=== PATIENT | female | born 2000 | race Caucasian/White ===

== ENCOUNTER 2023-03-23 12:45 | Emergency (ER) | payer BC, SELFPAY ==
[2023-03-23 13:13] VITALS: BP 113/85; PULSE 75; RESP 18; TEMP 36.7; O2SAT 100
--- NOTE | 2023-03-23 13:47 | ED.LOWEXIN ---
HPI - Extremity Injury (Lower) General Chief Complaint: Extremity Injury, Lower Stated Complaint: Lower extemity injury Time Seen by Provider: 03/23/23 13:43 Source: patient Mode of arrival: ambulatory Limitations: no limitations History of Present Illness HPI Narrative: [age] presented for complaint of bruising to the left great toenail after injury 3 days ago. She states she dropped a couch onto the toe. Endorses the pain was more severe the first 2 days. Reports the nail is intact, with bruising under the nail and some redness surrounding the nail. And reports mild swelling to the tip of the toe. Related Data Home Medications Medication Instructions Recorded Confirmed dextroamphetamine-amphetamine 5 mg 5 mg DIRECTED 03/23/23 03/23/23 tablet dextroamphetamine-amphetamine ER 20 mg PO DIRECTED 03/23/23 03/23/23 20 mg 24hr capsule,extend release lamotrigine 150 mg tablet 150 mg DIRECTED 03/23/23 03/23/23 sertraline 50 mg tablet 50 mg DIRECTED 03/23/23 03/23/23 Allergies Allergy/AdvReac Type Severity Reaction Status Date / Time No Known Allergies Allergy Verified 03/23/23 13:41 Review of Systems Review of Systems: CONSTITUTIONAL: Denies body aches, fever, chills EYES: Denies visual changes ENT: Denies rhinorrhea, congestion CARDIOVASCULAR: Denies chest pain, palpitations, or edema. RESPIRATORY: Denies cough or dyspnea. GASTROINTESTINAL: Denies abdominal pain, nausea, vomiting, or diarrhea. SKIN: Denies rash, itching, or wounds. MUSCULOSKELETAL: Reports left great toe pain denies back pain, joint pain, or myalgia. NEUROLOGIC: Denies headache, numbness, tingling, or weakness. All systems reviewed & are unremarkable except as noted in HPI and below PMFSH Past Medical History Medical History (Updated 03/23/23 @ 13:59 by Jenna Arguelles APRN) No pertinent past medical history Comments At time of signature, I have reviewed and agree with nursing past medical, surgical, social and family history unless otherwise noted. Please see nursing chart for further information. There is no relevant family history pertinent to the presenting complaint Exam Narrative: GENERAL: Well-appearing, and in no acute distress. HEAD: Normocephalic, atraumatic. CHEST: Speaks in full sentences. No respiratory distress. HEART: Regular rate and rhythm. Normal and equal peripheral pulses. EXTREMITIES: Left great toe with subungual hematoma. Nailbed is intact and adhered. Minimal erythema and swelling surrounding the nail. Minimal tenderness with palpation to the nail or distal phalanx. Foot has normal strength and sensation, normal range of motion. No open wounds, or obvious deformity; alignment normal, pulse palpable and equal bilaterally, skin warm, dry, pink. Capillary refill less than 3 seconds. SKIN: Warm, dry, no rash. NEURO: Alert and oriented x3. PSYCH: Normal mood and affect Course Course Emergency Course: Patient is aware of diagnosis, understands and agrees to treatment plan. Anticipatory guidance given. Patient agrees to follow-up as directed and is aware of reasons to seek care at the emergency department. Portions of this record may have been created with voice recognition software Level of Care: Express Care Visit Vital Signs Vital signs: Vital Signs Temperature 98.0 F 03/23/23 13:13 Pulse Rate 75 03/23/23 13:13 Respiratory Rate 18 03/23/23 13:13 Blood Pressure 113/85 03/23/23 13:13 Pulse Oximetry 100 03/23/23 13:13 Oxygen Delivery Room Air 03/23/23 13:13 Temperature 98.0 F 03/23/23 13:13 Pulse Rate 75 03/23/23 13:13 Respiratory Rate 18 03/23/23 13:13 Blood Pressure 113/85 03/23/23 13:13 Pulse Oximetry 100 03/23/23 13:13 Oxygen Delivery Room Air 03/23/23 13:13 Reviewed MDM - Extremity Injury (Lower) MDM Narrative Medical decision making narrative: Patient declined x-ray. Discussed physical exam findings; pain is much
== END 2023-03-23 14:06 | disposition home or self-care (01) ==
PROVIDERS: Emergency Provider Nurse Practitioner Family
DX: S90.212A Contusion of left great toe with damage to nail, initial encounter (principal); Z79.899 Other long term (current) drug therapy; W20.8XXA Other cause of strike by thrown, projected or falling object, initial encounter
CPT/HCPCS: 99202; G0463

== ENCOUNTER 2023-12-25 10:45 | Outpatient (CLI) | payer BC, SELFPAY ==
--- NOTE | ~2023-12-25 | US_ITS ---
EXAMINATION: US OB /maternal detail DATE: 12/25/2023 11:39 INDICATION: anatomy screening TECHNIQUE: Multiple obstetric sonographic images performed. FINDINGS: There is a single living fetus in breech presentation. The placenta is anterior with caudal margin 4 .4 cm the internal cervical os. Amniotic fluid volume is subjectively normal. heart rate of 154 beats per minute. Normal cervical length of 3.9 cm. The following anatomy was identified as normal: Ventricles, choroid plexus, falx and cava septum pellucidum Cerebellum and cisterna magna Nuchal fold Upper lip Spine Heart Diaphragm Stomach Kidneys Bladder 3 vessel cord and cord insertion Bilateral upper and lower extremities including hands and feet The following biometric data were obtained: BPD: 4.8 cm -> 20 weeks 3 days Head circumference: 17.6 cm -> 20 weeks 1 days Abdominal circumference: 15.5 cm -> 20 weeks 5 days Femur length: 3.0 cm -> 19 weeks 2 days These measurements are concordant. Head circumference to abdominal circumference ratio: 1.13 (normal range 1.07-1.25). Estimated weight: 330 g (+/-) 49 g. or 12 oz. (+/-) 2 oz. IMPRESSION: 1. Single living fetus with breech presentation with heart rate of 154 bpm. 2. Gestational age by ultrasound of 20 weeks 1 day(s) (+/-) 1 week 3 day(s) with ultrasound estimat ed date of delivery (KATJA) of 05/12/2024. Estimated weight is 41st percentile by Hadlock criteria when 05/12/2024 is used as the KATJA. Please correlate with clinical information or earlier ultrasounds f or most accurate KATJA. 3. Normal survey. Reviewed, dictated and finalized at location A. IMPRESSION: 1. Single living fetus with breech presentation with heart rate of 154 b pm. 2. Gestational age by ultrasound of 20 weeks 1 day(s) (+/-) 1 week 3 day(s) w ith ultrasound estimated date of delivery (KATJA) of 05/12/2024. Estimated we ight is 41st percentile by Hadlock criteria when 05/12/2024 is used as the KATJA. P lease correlate with clinical information or earlier ultrasounds for most accur ate KATJA. 3. Normal survey.
== END 2023-12-25 10:46 ==
PROVIDERS: PCP Student in an Organized Health Care Education/Training Program; Visit Provider Student in an Organized Health Care Education/Training Program
DX: Z36.9 Encounter for antenatal screening, unspecified (principal); Z3A.20 20 weeks gestation of pregnancy
CPT/HCPCS: 76805